=== PATIENT | male | born 1955 | race Caucasian/White ===

== ENCOUNTER 2020-02-18 15:55 | Emergency (ER) | payer OTHER, SELFPAY ==
[~2020-02-18] VITALS: Ht 175.3 cm; Wt 68.5 kg
[2020-02-18 15:57] VITALS: BP 142/76
== END 2020-02-18 16:43 | disposition home or self-care (01) ==
LOC: ER 15:56
DX: R50.9 Fever, unspecified (principal); Z20.828 Contact with and (suspected) exposure to other viral communicable diseases; R05 Cough; R51 Headache
CPT/HCPCS: 36415; 71045; 87635; 99283; 99284

== ENCOUNTER 2020-08-03 12:18 | Emergency (ER) | payer OTHER, SELFPAY ==
[~2020-08-03] VITALS: Ht 175.3 cm; Wt 68.2 kg
[2020-08-03 12:33] VITALS: BP 123/76
[2020-08-03 12:59] LABS: CLARITY,URINE CLOUDY (Clear); COLOR,URINE YELLOW (Yellow); GLUCOSE, URINE NEGATIVE (Neg); KETONES,URINE NEGATIVE (Neg); LEUKOCYTE ESTERASE ,URINE MODERATE (Neg); OCCULT BLOOD,URINE NEGATIVE (Neg); PROTEIN,URINE 30 mg/dl (Neg)
[2020-08-03 13:04] LABS: UA COLLECTION TYPE CLN CATCH MIDSTREAM
[2020-08-03 13:05] LABS: NITRITES, URINE NEGATIVE (Neg)
[2020-08-03 13:06] LABS: MUCUS STRANDS FEW /LPF (Neg); SQUAMOUS EPITHELIAL CELL,UR FEW /LPF (FEW)
[2020-08-03 13:10] LABS: BACTERIA,URINE 3+ /HPF (Neg); RBC,URINE 0-2 /HPF (0-2); TRANSITIONAL EPI CELLS,URINE FEW /HPF; WBC,URINE 20-30 /HPF (0-4)
[2020-08-03 13:11] LABS: AMORPHOUS PHOSPHATES 3+
[2020-08-03] MEDS ORDERED: CEPH250T PO (13:18)
== END 2020-08-03 13:56 | disposition home or self-care (01) ==
LOC: ER 12:19
DX: N39.0 Urinary tract infection, site not specified (principal); Z79.2 Long term (current) use of antibiotics; Z88.4 Allergy status to anesthetic agent
CPT/HCPCS: 81001; 87088; 99283

== ENCOUNTER 2020-10-17 21:05 | Emergency (ER) | payer MEDICAID, OTHER ==
[~2020-10-17] VITALS: Ht 175.3 cm; Wt 72.7 kg
[2020-10-17 21:06] VITALS: BP 122/79
[2020-10-17] MEDS ORDERED: BUPIVAcaine 0.25% w/Epi /PF 30ml vial SQ ONE (21:25)
[2020-10-17] MEDS: BUPIVAcaine 0.25% w/Epi /PF 30ml vial SQ ONE (22:23)
== END 2020-10-17 22:35 | disposition home or self-care (01) ==
LOC: ER 21:05
DX: S61.511A Laceration without foreign body of right wrist, initial encounter (principal); Z88.8 Allergy status to other drugs, medicaments and biological substances; W26.8XXA Contact with other sharp object(s), not elsewhere classified, initial encounter; Y93.89 Activity, other specified; Y92.89 Other specified places as the place of occurrence of the external cause; Y99.8 Other external cause status
CPT/HCPCS: 12002; 99282; M0239

== ENCOUNTER 2020-10-29 14:14 | Emergency (ER) | payer MEDICAID ==
[~2020-10-29] VITALS: Ht 175.3 cm; Wt 72.7 kg
[2020-10-29 14:43] VITALS: BP 102/76
== END 2020-10-29 15:01 | disposition home or self-care (01) ==
LOC: ER 14:14
DX: S61.412D Laceration without foreign body of left hand, subsequent encounter (principal); Z48.02 Encounter for removal of sutures; Z88.8 Allergy status to other drugs, medicaments and biological substances; X58.XXXD Exposure to other specified factors, subsequent encounter
CPT/HCPCS: 99281

== ENCOUNTER 2021-05-01 14:37 | Emergency (ER) | payer MEDICAID ==
[~2021-05-01] VITALS: Ht 182.9 cm; Wt 75.0 kg
[2021-05-01 15:19] LABS: BASOPHILS # (AUTO) 0.1 X10'3 (0-0.2); BASOPHILS % (AUTO) 0.8 % (0-1); EOSINOPHILS # (AUTO) 0.4 X10'3 (0-0.9); EOSINOPHILS % (AUTO) 3.7 % (0-6); HEMATOCRIT 38.4 % (42.0-52.0); HEMOGLOBIN 12.9 g/dl (14.0-17.9); LYMPHOCYTES # (AUTO) 1.8 X10'3 (1.1-4.8); LYMPHOCYTES % (AUTO) 17.2 % (21-51); MEAN CORPUSCULAR HEMOGLOBIN 30.9 PG (27.0-31.0); MEAN CORPUSCULAR HGB CONC 33.5 g/dL (33.0-36.5); MEAN CORPUSCULAR VOLUME 92.4 FL (78-98); MEAN PLATELET VOLUME 7.4 FL (7.4-10.4); MONOCYTES # (AUTO) 1.1 X10'3 (0-0.9); MONOCYTES % (AUTO) 10.7 % (2-12); NEUTROPHILS # (AUTO) 6.9 X10'3 (1.8-7.7); NEUTROPHILS % (AUTO) 67.6 % (42-75); PLATELET COUNT 253 X10'3 (140-440); RED BLOOD COUNT 4.16 X10'6 (4.70-6.10); RED CELL DISTRIBUTION WIDTH 14.3 % (11.5-14.5); WHITE BLOOD COUNT 10.2 X10'3 (4.5-11.0)
[2021-05-01 15:34] LABS: ALANINE AMINOTRANSFERASE 16 U/L (12-78); ALBUMIN 3.3 G/DL (3.4-5.0); ALBUMIN/GLOBULIN RATIO 1.1 (1.1-1.5); ALKALINE PHOSPHATASE 67 IU/L (46-116); ANION GAP 8 (8-16); ASPARTATE AMINO TRANSFERASE 10 U/L (10-37); BILIRUBIN,TOTAL 0.4 MG/DL (0.1-1.0); BLOOD UREA NITROGEN 17 MG/DL (7-18); BUN/CREATININE RATIO 19.3 (5.4-32.0); CALCIUM 8.2 MG/DL (8.5-10.1); CHLORIDE 107 MMOL/L (99-107); CREATININE 0.88 MG/DL (0.60-1.10); GLUCOSE 115 MG/DL (70-104); POTASSIUM 4.3 MMOL/L (3.5-5.1); SODIUM 142 MMOL/L (135-145); TOTAL PROTEIN 6.2 G/DL (6.4-8.2); eGFR 87 ML/MIN
[2021-05-01] MEDS ORDERED: normal saline 1000ml 1,000 ML IV ONE ×3 (16:20→18:15)
[2021-05-01 17:56] LABS: D-DIMER 0.22 MG/L FEU (0-0.50)
[2021-05-01 19:28] VITALS: BP 126/75
== END 2021-05-01 19:58 | disposition home or self-care (01) ==
LOC: ER 14:37
DX: R55 Syncope and collapse (principal); E86.0 Dehydration; R06.02 Shortness of breath; Z88.8 Allergy status to other drugs, medicaments and biological substances
CPT/HCPCS: 36415; 70450; 71045; 80053; 83880; 84484; 85025; 85379; 93005; 96360; 96361; 99285; J7030

== ENCOUNTER 2023-01-07 13:02 | Emergency (ER) | payer MEDICAID, MEDICARE ==
[~2023-01-07] VITALS: Ht 175.3 cm; Wt 69.8 kg
[2023-01-07 13:07] VITALS: BP 113/74
[2023-01-07] MEDS ORDERED: ONDA4TAB12 PO (15:59)
[2023-01-07] MEDS ORDERED: HYDR-3965 PO (15:59)
[2023-01-07] MEDS ORDERED: HYDROcodone/acetaminophen 5mg/325mg tablet PO ONE (16:00)
[2023-01-07] MEDS ORDERED: ondansetron 4mg rapidly disintigrating tab PO ONE (16:00)
== END 2023-01-07 16:23 | disposition home or self-care (01) ==
LOC: ER 13:03
DX: S20.211A Contusion of right front wall of thorax, initial encounter (principal); Z88.8 Allergy status to other drugs, medicaments and biological substances; Z79.899 Other long term (current) drug therapy; X58.XXXA Exposure to other specified factors, initial encounter; Y93.53 Activity, golf; Y92.89 Other specified places as the place of occurrence of the external cause; Y99.8 Other external cause status
CPT/HCPCS: 71045; 99284

== ENCOUNTER 2023-11-20 16:09 | Emergency (ER) | payer OTHER, MEDICARE ==
[~2023-11-20] VITALS: Ht 175.3 cm; Wt 72.7 kg
[~2023-11-20 16:09] MED LIST: ONDA4TAB12 PO
[2023-11-20 16:16] VITALS: BP 119/70; PULSE 104; RESP 18; TEMP 98; O2SAT 98
[2023-11-20] MEDS ORDERED: ACET-2119 PO (17:46)
== END 2023-11-20 17:58 | disposition home or self-care (01) ==
LOC: ER 16:09
DX: S50.02XA Contusion of left elbow, initial encounter (principal); Z88.5 Allergy status to narcotic agent; Z88.8 Allergy status to other drugs, medicaments and biological substances; W18.39XA Other fall on same level, initial encounter; Y93.89 Activity, other specified; Y92.89 Other specified places as the place of occurrence of the external cause; Y99.8 Other external cause status
CPT/HCPCS: 73080; 99283; A6449

== ENCOUNTER 2024-08-01 13:35 | Outpatient (CLI) | payer OTHER ==
[~2024-08-01 13:35] MED LIST changes: +ONDA-243 PO; -ONDA4TAB12 PO
== END 2024-08-01 23:59 | disposition home or self-care (01) ==
LOC: MRI02 13:35
PROVIDERS: ATTEND Physician Assistant Medical
DX: S86.112A Strain of other muscle(s) and tendon(s) of posterior muscle group at lower leg level, left leg, initial encounter (principal); X58.XXXA Exposure to other specified factors, initial encounter; Y93.89 Activity, other specified; Y92.89 Other specified places as the place of occurrence of the external cause; Y99.8 Other external cause status
CPT/HCPCS: 73718

== ENCOUNTER 2025-06-16 16:46 | Emergency (ER) | payer MEDICARE, OTHER ==
[~2025-06-16] VITALS: Ht 172.7 cm; Wt 84.0 kg
[2025-06-16 16:53] VITALS: TEMP 97.8
--- NOTE | 2025-06-16 17:48 | Physician Documentation ---
History of Present Illness ~ General Chief Complaint: General Stated Complaint: ALLERGIC REACTION Time Seen by MD: 17:13 Primary Medical Doctor: NONE History of Present Illness Initial Comments Patient is seen today brought in by EMS with complaint of syncopal episode while he was at his primary care provider office today getting some vaccinations. Patient states he got to vaccinations and then had a syncopal episode that was witnessed. Patient states he is feeling a lot better now and he currently denies any chest pain or shortness of breath or abdominal pain or nausea, vomiting, diarrhea. Medication Reconciliation Allergies: Coded Allergies: lidocaine (Verified Allergy, Severe, syncope, 11/20/23) Scheduled ONDANSETRON ODT 4mg tablet (Ondansetron Odt), 1 TABLET PO Q6H Past Medical History Past Medical History: No Pertinent History Past Surgical History: no surgical history Drug Use: none Lives In: Home Occupation: employed Review of Systems Constitutional: Denies: chills, fever, weakness Eyes: Denies: pain, blurred vision ENT: Denies: ear pain, nose pain, throat pain, mouth pain Respiratory: Denies: cough, shortness of breath Cardiovascular: Denies: chest pain, palpitations Gastrointestinal: Denies: abdominal pain, nausea, vomiting Genitourinary: Denies: burning, dysuria Male Genitalia: Denies: penile discharge, testicular pain Neurological: Denies: headache, dizziness Musculoskeletal: Denies: pain, swelling Integumentary: Denies: rash, lesions Allergic/Immunologic: Denies: hives, itching Hematologic/Lymphatic: Denies: no symptoms reported Psychiatric: Denies: depression, anxiety Physical Exam Physical Exam Vital Signs: Temperature: 97.8, Source: Temporal, Heart Rate: 65, Respiratory Rate: 16, BP: 109/87, Pulse Oximetry: 98, Weight: 84.000 Oxygen Flow Rate: 0 Physical Exam General: Awake and Alert, no acute distress. HEENT: Conjunctiva pink, Sclera clear, Mucus Membranes moist. Neck: Supple without masses and tenderness. Resp: Unlabored. Lungs clear to auscultation bilaterally. Heart: Regular Rate and rhythm, normal S1 and S2 without murmur, rub or gallop. Abdomen: Soft and non tender no organomegaly Extremities: No cyanosis,clubbing or edema. Skin: Warm and Dry. Progress Results/Orders Results/Orders Vital Signs 06/16/25 16:53 Temp 97.8 Pulse 65 Resp 16 B/P (MAP) 109/87 Pulse Ox 98 O2 Flow Rate 0 Medical Decision Making Findings Patient is seen today brought in by EMS with complaint of syncopal episode while he was at his primary care provider office today getting some vaccinations. Patient states he got to vaccinations and then had a syncopal episode that was witnessed. Patient states he is feeling a lot better now and he currently denies any chest pain or shortness of breath or abdominal pain or nausea, vomiting, diarrhea. Patient was feeling much better after 60 minutes of rest and will be discharged for follow up with primary care for further eval and treatment as soon as possible. Patient will return to ED with any worsening, concerning or changing symptoms. Departure Disposition: 01 HOME / SELF CARE / HOMELESS Impression: Primary Impression: General medical exam Condition: Improved Discharge Instructions: Syncope, Adult, [id number] Additional Instructions: Patient was feeling much better after 60 minutes of rest and will be discharged for follow up with primary care for further eval and treatment as soon as possible. Patient will return to ED with any worsening, concerning or changing symptoms. Referrals: NO PRIMARY CARE PROVIDER (PCP) Signature Scribe Signature: No scribe Attestation: No scribe JOCELYN LEONE PAC Jun 16, 2025 17:48
[2025-06-16 18:00] VITALS: BP 109/72; PULSE 60; RESP 16; O2SAT 98
== END 2025-06-16 18:02 | disposition home or self-care (01) ==
LOC: ER 16:47
DX: R55 Syncope and collapse (principal); Z00.8 Encounter for other general examination
CPT/HCPCS: 99283